=== PATIENT | male | born 1945 | race Caucasian/White ===

== ENCOUNTER → 2016-10-13 | Outpatient (CLI) | payer MEDICARE ==
[~2016-10-13] MED LIST: ATOR20TA9 PO; CEFD300C37 PO; DOXY100T PO; POTA20PA PO; RIVA20TA PO
== END | disposition home or self-care (01) ==
LOC: CFH 09:14
PROVIDERS: ATTEND Internal Medicine Pulmonary Disease
DX: R91.1 Solitary pulmonary nodule (principal)
CPT/HCPCS: 71250

== ENCOUNTER → 2017-05-05 | Outpatient (CLI) | payer MEDICARE | END | disposition home or self-care (01) | LOC: CFH 08:07 | PROVIDERS: ATTEND Internal Medicine Pulmonary Disease | DX: R91.1 Solitary pulmonary nodule (principal); N28.1 Cyst of kidney, acquired; M47.894 Other spondylosis, thoracic region | CPT/HCPCS: 71250 ==

== ENCOUNTER 2018-10-25 08:52 | Outpatient (CLI) | payer MEDICARE ==
[~2018-10-25 08:52] MED LIST changes: +ATOR20TA37 PO; -ATOR20TA9 PO; -POTA20PA PO; +POTA20PA31 PO
== END 2018-10-25 23:59 | disposition home or self-care (01) ==
LOC: CFH 08:52
PROVIDERS: ATTEND Registered Nurse
DX: R91.1 Solitary pulmonary nodule (principal)
CPT/HCPCS: 71250